=== PATIENT | male | born 2000 ===

== ENCOUNTER 2018-06-03 20:14 | Emergency (ER) | payer SELFPAY ==
--- NOTE | 2018-06-03 21:37 | C.PDOC ---
History Of Present Illness 18 y/o male presents to the ED accompanied by parents, with complaints of persistent fever and sore throat for the past 3 days. Associated with difficulty swallowing, decreased appetite, and chills. Patient was seen twice over the we ekend at [facility] ED and discharged home with amoxicillin and Motrin 600mg. He reports starting the antibiotic yesterday and has been taking antipyretics TID. States his temperature this evening was 104.3 sublingual, prompting him to return to the ED. Otherwise patient denies any voice changes, abdominal pain, nausea, vomiting, cough, or other associated symptoms. Time Seen by Provider: 06/03/18 21:17 Chief Complaint (Nursing): ENT Problem History Per: Patient History/Exam Limitations: no limitations Onset/Duration Of Symptoms: Days Current Symptoms Are (Timing): Still Present Location Of Pain: Throat Sick Contacts (Context): None Associated Symptoms: Fever Past Medical History Reviewed: Historical Data, Nursing Documentation, Vital Signs Vital Signs: Last Vital Signs Temp 102.1 F H 06/03/18 20:36 Pulse 122 H 06/03/18 20:36 Resp 18 06/03/18 20:36 BP 126/71 06/03/18 20:36 Pulse Ox 97 06/03/18 20:36 - Medical History PMH: No Chronic Diseases Surgical History: No Surg Hx - [facility] Procedures IMMOBILIZ/WOUND ATTN NEC (12/16/14) Family History: States: Unknown Family Hx - Social History Hx Tobacco Use: Yes (hooka) Hx Alcohol Use: Yes Hx Substance Use: No - Immunization History Hx Tetanus Toxoid Vaccination: No Hx Influenza Vaccination: No Hx Pneumococcal Vaccination: No Review Of Systems Constitutional: Positive for: Fever, Chills ENT: Positive for: Throat Pain, Other (Difficulty swallowing). Negative for: Nose Congestion Respiratory: Negative for: Cough, Shortness of Breath Gastrointestinal: Negative for: Nausea, Vomiting, Abdominal Pain, Diarrhea Neurological: Negative for: Weakness, Headache, Dizziness Physical Exam - Physical Exam Appears: Non-toxic, No Acute Distress Skin: Normal Color, Warm, Diaphoretic Head: Atraumatic, Normacephalic Eye(s): bilateral: Normal Inspection, PERRL, EOMI Throat: Erythema (to the posterior oropharynx), Exudate, Other (Enlarged tonsils bilaterally) Neck: Normal ROM, Supple Lymphatic: Adenopathy (to the cervical chain) Chest: Symmetrical Cardiovascular: Rhythm Regular, No Murmur Respiratory: Normal Breath Sounds, No Rales, No Rhonchi, No Wheezing Extremity: Bilateral: Atraumatic, Normal Color And Temperature, Normal ROM Neurological/Psych: Oriented x3, Normal Speech ED Course And Treatment - Laboratory Results Result Diagrams: 06/03/18 21:44 06/03/18 21:44 O2 Sat by Pulse Oximetry: 97 (RA) Pulse Ox Interpretation: Normal Medical Decision Making Medical Decision Making: Impresson: 18 y/o male with persistent sore throat and fever, began Amoxicillin course yesterday Plan: --VBG --CMP --Magnesium --CBC --UA --urine culture --blood culture --IV fluids --Tylenol 975 mg PO --IV rocephin Disposition - Disposition Disposition: HOME/ ROUTINE Disposition Time: 22:49 Condition: STABLE Additional Instructions: Alternate Motrin 600 and Tylenol 975 every 3 hours. Take your antibiotics as indicated. Follow up with your doctor or our clinic. Instructions: Strep Throat (DC) Forms: [employer] (Telugu), General Discharge Instructions, Work Excuse - POA Present On Arrival: None - Clinical Impression Clinical Impression: Fever, Strep pharyngitis - Scribe Statement The provider has reviewed the documentation as recorded by the Scribe (Lucia Parker) Provider Attestation: All medical record entries made by the Scribe were at my direction and personally dictated by me. I have reviewed the chart and agree that the record accurately reflects my personal performance of the history, physical exam, medical decision making, and the department course for this patient. I have also personally directed, reviewed, and agree with the discharge instructions and disposition.
[2018-06-03] MEDS ORDERED: Sodium Chloride 0.9% 1,000 ML IV ONE (21:38)
[2018-06-03] MEDS ORDERED: cefTRIAXone IV 1 gm in Dextros 50 ML IVPB ONE (21:39)
[2018-06-03 21:54] LABS: BASO % 0.3 % (0.0-2.0); EOS % 0.1 % (0.0-4.0); HEMOGLOBIN 14.8 g/dL (12.0-18.0); LYMPH # 0.9 K/uL (1.0-4.3); LYMPH % 8.6 % (20.0-40.0); MEAN CELL VOLUME 85.6 fL (80.0-94.0); MEAN CORPUSCULAR HEMOGLOBIN 29.6 pg (27.0-31.0); MEAN CORPUSCULAR HGB CONC 34.6 g/dL (33.0-37.0); MONO # 0.8 K/uL (0.0-0.8); MONO % 7.9 % (0.0-10.0); NEUT # 8.6 K/uL (1.8-7.0); NEUT % 83.1 % (50.0-75.0); NRBC % 0.1 % (0.0-2.0); PLATELET COUNT 181 K/uL (130-400); WHITE BLOOD COUNT 10.3 K/uL (4.8-10.8)
[2018-06-03] MEDS ORDERED: cefTRIAXone 1 gm 1 GM/100 ML BAG IVPB ONE (21:55)
[2018-06-03 21:57] VITALS: BP 124/70; PULSE 95; RESP 17; TEMP 98.7
[2018-06-03 22:02] LABS: ALB/GLOB RATIO 1.4 (1.0-2.1); ALBUMIN 4.6 g/dL (3.5-5.0); ALT/SGPT 28 U/L (21-72); AST/SGOT 28 U/L (17-59); BLOOD UREA NITROGEN 13 mg/dL (9-20); CALCIUM 9.2 mg/dl (8.6-10.4); GFR NON-AFRICAN AMERICAN > 60
[2018-06-03 22:13] LABS: VENOUS BLOOD GAS BASE EXCESS 0.8 mmol/L (0.0-2.0); VENOUS BLOOD GAS PCO2 39 mmHg (40-60); VENOUS BLOOD GAS PO2 44 mm/Hg (30-55); VENOUS BLOOD PH 7.42 (7.32-7.43)
[2018-06-03 22:44] LABS: BANDS 4 % (0-2); LYMPHOCYTE 6 % (20-40); MONOCYTE 6 % (0-10); NEUTROPHIL 83 % (50-75); PLATELET ESTIMATE NORMAL (NORMAL); REACTIVE LYMPHOCYTES 1 % (0-0); TOTAL CELLS COUNTED 100
[2018-06-03 22:52] VITALS: O2SAT 97
== END 2018-06-03 23:04 | disposition home or self-care (01) ==
LOC: C.ER 20:14 → SUPCPDRO 20:14 → C.ER 23:04
DX: J02.0 Streptococcal pharyngitis (principal); R50.9 Fever, unspecified
CPT/HCPCS: 80053; 82803; 83735; 85025; 87040; 96365; 99285; J0696; J7030